=== PATIENT | male | born 1945 | race Caucasian/White ===

== ENCOUNTER 2016-08-07 08:22 | Day surgery (SDC) | payer MEDICARE, OTHER ==
[2016-08-03 11:59] LABS: HEMATOCRIT 46.4 % (40.0-51.0); HEMOGLOBIN 16.2 g/dL (13.6-17.8)
[2016-08-03 12:23] LABS: BUN (BLOOD UREA NITROGEN) 11 MG/DL (6-23); CALCIUM, SERUM 9.1 MG/DL (8.5-10.4); CHLORIDE, SERUM 104 MMOL/L (96-112); CO2 (CARBON DIOXIDE) 28 MMOL/L (24-34); GFR AFRICAN AMERICAN 112 ML/MIN (>=60); GFR NON AFRICAN AMERICAN 96 ML/MIN (>=60); GLUCOSE, SERUM 117 MG/DL (60-99); POTASSIUM, SERUM 4.2 MMOL/L (3.5-5.3); SODIUM, SERUM 143 MMOL/L (135-148)
--- NOTE | ~2016-08-07 | OP ---
Record Of Operation [facility] [address] [place]. [address] NAME: ROSSY JORDAN : 49 STATUS : [facility]#: [id number] AGE: 71 ADM/REG DATE : 08/07/16 MR#: [id number] REPORT SERV DATE: 08/07/16 DICTATED BY: BAKARI MORALES DATE: 08/07/16 REPORT STATUS : Draft TRANSCRIBED BY: MODL DATE: 08/07/16 DATE OF PROCEDURE: 08/07/2016 PREOPERATIVE DIAGNOSES: 1. Incarcerated umbilical hernia. 2. Reducible supraumbilical incisional hernia. 3. Hypertension. POSTOPERATIVE DIAGNOSES: 1. Incarcerated umbilical hernia. 2. Reducible supraumbilical incisional hernia. 3. Hypertension. PROCEDURES: 1. Robotic incarcerated umbilical hernia repair with mesh. 2. Robotic reducible incisional hernia repair with mesh. ANESTHESIA: General. SURGEON: Bakari Morales M.D. FLAT SHEET [employer]KER: Sherif. COMPLICATIONS: None. DRAINS: None. ESTIMATED BLOOD LOSS: 20 mL. FINDINGS: The patient was noted to have an incarcerated umbilical hernia with incarcerated preperitoneal fat. This was approximately 2.5 cm with weakness and continuation of the supraumbilical tissue for approximately 3 cm cephalad. The entire area was reapproximated with mesh. The umbilical hernia was closed primarily as well. OPERATIVE TECHNIQUE: The patient was brought to the operating room placed on the table in supine position. He had preoperative IV antibiotics. He had sequential hose in place. He voided prior to the procedure. He underwent general endotracheal anesthesia and was prepped and draped in sterile fashion. A time-out was completed. Local anesthesia was instilled to the left subcostal skin. A 15 blade knife was used to make an incision and a Veress needle was inserted and water drop test safely performed. A 15 mm of pneumoperitoneum was obtained. An 8 mm robotic trocar was inserted into the abdomen followed by the laparoscope. There was no evidence of Veress or trocar injury. The patient was then placed with his right side down into the left mid and upper lateral, a 12 mm trocar was inserted under direct visualization. An additional 8 mm trocar was placed in the lower mid axillary line under direct visualization. The patient was then placed with his right side up and the patient's cart was brought to the bedside and the trocars were docked. A 30-degree up-scope Record Of Operation [place] [id number] [facility]. [address] NAME: ROSSY JORDAN : 49 STATUS : [facility] PAT#: [id number] AGE: 71 ADM/REG DATE : 08/07/16 MR#: [id number] REPORT SERV DATE: 08/07/16 DICTATED BY: BAKARI MORALES DATE: 08/07/16 REPORT STATUS : Draft TRANSCRIBED BY: LINDA DATE: 08/07/16 was used. The scissors and grasper were used to reduce the incarcerated hernia contents and those were then examined and noted to be viable. The hernia sac was scored at the orifice of the umbilical defect and the entire sac was carefully reduced and excised with care taken not to involve the infraumbilical skin. It was then removed through a trocar and discarded. At this point, the dissection of the peritoneum more cephalad revealed some significant attenuation and weakness, and a small of 4 to 5 mm defect approximately 3 cm cephalad. At this point, the decision was made to close the defects primarily with an IPOM mesh overlay. The pneumoperitoneum was reduced to 6 mm, and the umbilical defect was reapproximated using a 2-0 V-Loc suture without tension. The [address] mesh with echo positioning system was then inserted into the abdomen. It was brought out a stab incision at the superior aspect of the umbilical defect to totally overlap the weakness in the anterior wall and cover the incisional hernia. There was no evidence of any incarceration of this hernia. At this point, the positioning system was inflated to hold the mesh to the anterior abdominal wall. It was secured circumferentially 360 degrees with the absorbable 2 0 V-Loc suture in running fashion secured full-thickness to the abdominal wall. He tolerated the procedure well and the pneumoperitoneum was re-established, and there was no evidence of any bleeding or other visual abnormalities. All the instruments and trocars were then removed under direct visualization. Two 12 mm trocar sites were then closed with a suture passer. The skin edges were reapproximated using interrupted subcuticular Monocryl sutures. Dermabond was applied. He was extubated and taken to the recovery room in stable condition. All sponge and needle counts reported correct. DH/MODL Bakari Morales M.D. / [id number] CC: Jermaine Sorensen M.D. Patrick Foley, M.D.
[~2016-08-07 08:22] MED LIST: ASA5GR PO; ASABAYER PO; CARTIA XT300 MG/24 PO; DILT-XR240 MG PO; DUONEB INH; FOLIC ACID400 MC1 PO; LISINOPRIL40 MG PO; MEDROLPAK4; MONOPRIL40 MG PO; MULTIVITAMI1 PO; OTC POTASSIUM PO; PROAIR HFA INH; VITAMIN B-121000 MC1 SL; VITAMIN B-625 MG PO; VITAMIN D1000 UNI1 PO; VITC500 PO
== END 2016-08-07 15:48 | disposition home or self-care (01) ==
LOC: SDC 08:22
PROVIDERS: Surgery
PROC: 0WUF4JZ Supplement Abdominal Wall with Synthetic Substitute, Percutaneous Endoscopic Approach (ICD-10-PCS; 2016-08-07)
PROC: 0WUF4JZ Supplement Abdominal Wall with Synthetic Substitute, Percutaneous Endoscopic Approach (ICD-10-PCS; principal; 2016-08-07 09:30)
DX: K42.0 Umbilical hernia with obstruction, without gangrene (principal); K43.2 Incisional hernia without obstruction or gangrene; J18.9 Pneumonia, unspecified organism; E66.9 Obesity, unspecified; I10 Essential (primary) hypertension; Z98.890 Other specified postprocedural states; Z79.82 Long term (current) use of aspirin; Z79.52 Long term (current) use of systemic steroids; Z79.899 Other long term (current) drug therapy; Z68.39 Body mass index [BMI] 39.0-39.9, adult
CPT/HCPCS: 80048; 85014; 85018; 87641; 88302; 93005; C1781; J0690; J1885; J2405; J2710; J3010